=== PATIENT | female | born 1985 | race Caucasian/White ===

== ENCOUNTER 2017-01-11 10:02 | Inpatient (IN) | payer MEDICAID ==
[~2017-01-11] VITALS: Ht 154.9 cm; Wt 123.8 kg
[~2017-01-11 10:02] MED LIST: METF-303
[2017-01-11] MEDS ORDERED: LR 1,000 ML IV ONE (12:35)
[2017-01-11] MEDS ORDERED: CEFAZOLIN 2 GM IVPB PREMIX 50 ML IV ONE (12:45)
[2017-01-11 13:22] LABS: BASOPHILS # (AUTO) 0.1 K/uL (0.0-0.2); BASOPHILS % (AUTO) 0.6 % (0.0-2.0); EOSINOPHILS # (AUTO) 0.4 K/uL (0.0-0.4); EOSINOPHILS % (AUTO) 3.3 % (0.0-4.0); HEMOGLOBIN 11.4 g/dL (12.0-16.0); MEAN CORPUSCULAR HEMOGLOBIN 26 pg (27-31); MEAN CORPUSCULAR HGB CONC 33 % (32-36); MEAN CORPUSCULAR VOLUME 79 fL (79.0-98.0); MONOCYTES # (AUTO) 0.7 K/uL (0.0-1.0); NEUTROPHILS # (AUTO) 9.2 K/uL (1.8-7.7); NEUTROPHILS % (AUTO) 69.1 % (40.0-70.0); PLATELET COUNT (AUTO) 328 K/uL (130-430); RED BLOOD CELL COUNT(AUTO) 4.42 MIL/uL (4.2-6.2); RED CELL DISTRIBUTION WIDTH 14.1 % (9.0-15.0); WHITE BLOOD COUNT (AUTO) 13.4 K/uL (4.8-10.8)
[2017-01-11 13:26] LABS: BILIRUBIN,URINE 1+ (NEGATIVE); BLOOD, URINE NEGATIVE (NEGATIVE); CLARITY/URINE CLEAR (CLEAR); COLOR,URINE YELLOW (YELLOW); GLUCOSE,URINE NEGATIVE (NEGATIVE); KETONES,URINE 1+ (NEGATIVE); LEUKOCYTE ESTERASE ,URINE 1+ (NEGATIVE); NITRITE, URINE NEGATIVE (NEGATIVE); PROTEIN URINE TRACE (NEGATIVE)
[2017-01-11 13:39] LABS: BACTERIA,URINE FEW /HPF (None Seen); MUCUS,URINE None Seen /LPF (None Seen); RBC,URINE 0-3 /HPF (0-3)
[2017-01-11] MEDS ORDERED: ePHEDrine sulfate 50 MG/ML VIAL IV ONE (14:00)
[2017-01-11] MEDS ORDERED: NS 1000 ML BAG IV ONE (14:00)
[2017-01-11] MEDS ORDERED: LR 1,000 ML IV.SOLN IV ONE (14:00)
[2017-01-11] MEDS ORDERED: MORPHINE SULFATE 10MG/10ML PF AMP EP ONE (14:00)
[2017-01-11] MEDS ORDERED: ONDANSETRON HCL 4 MG/2 ML VIAL IVP ONE (14:00)
[2017-01-11] MEDS ORDERED: LR 1,000 ML IV SCH ×2 (14:40→15:18)
[2017-01-11] MEDS ORDERED: NALOXONE HCL 1 MG in NACL 0.9% 1,000 ML IV PRN ×4 (14:40)
[2017-01-11] MEDS ORDERED: HYDROmorphone 1 MG INJ. 1 MG/ML AMPUL IVP PRN (14:45)
[2017-01-11] MEDS ORDERED: HYDROmorphone 2 MG/ML VIAL IVP PRN ×2 (14:45)
[2017-01-11] MEDS ORDERED: NALOXONE HCL 0.4 MG/ML AMP (NARCAN) IVP PRN ×3 (14:45)
[2017-01-11] MEDS ORDERED: DIPHENHYDRAMINE HCL 50 MG CAPSULE PO PRN (14:45)
[2017-01-11] MEDS ORDERED: KETOROLAC TROMETHAMINE 60 MG/2 ML VIAL IM PRN (14:45)
[2017-01-11] MEDS ORDERED: ONDANSETRON HCL 4 MG/2 ML VIAL IVP PRN (14:45)
[2017-01-11] MEDS ORDERED: DIPHENHYDRAMINE INJ 50 MG/ML VIAL IVP PRN (14:45)
[2017-01-11] MEDS ORDERED: MEPERIDINE HCL/PF 25 MG/ML DISP.SYRIN IVP PRN ×2 (14:45)
[2017-01-11] MEDS ORDERED: OXYTOCIN/NORMAL SALINE 1,000 ML IV ONE ×2 (15:18→15:36)
[2017-01-11] MEDS ORDERED: OXYCODONE/ACETAMINOPHEN 5-325 TABLET PO PRN (15:30)
[2017-01-11] MEDS ORDERED: MORPHINE SULFATE 10 MG/ML VIAL IVP PRN (15:30)
[2017-01-11] MEDS ORDERED: DOCUSATE SODIUM 100 MG CAPSULE PO PRN (15:30)
[2017-01-11] MEDS ORDERED: SENNOSIDES/DOCUSATE SODIUM 1 TAB TABLET(SENOKOT-S) PO PRN (15:30)
[2017-01-11] MEDS ORDERED: SIMETHICONE 80 MG TAB.CHEW PO PRN (15:30)
[2017-01-11] MEDS ORDERED: LANOLIN 7 GM OINT. TP PRN (15:30)
[2017-01-11] MEDS ORDERED: ANUSOL 1 EA SUPP.RECT (PREPARATION H) RC PRN (15:30)
[2017-01-11] MEDS ORDERED: BISACODYL 10 MG/SUPPOSITORY RC PRN (15:30)
[2017-01-11] MEDS ORDERED: TEMAZEPAM 15 MG CAPSULE PO PRN (21:00)
[2017-01-12 03:52] VITALS: BP_SYST 117
[2017-01-12 06:30] LABS: BASOPHILS % (AUTO) 0.3 % (0.0-2.0); EOSINOPHILS # (AUTO) 0.1 K/uL (0.0-0.4); EOSINOPHILS % (AUTO) 0.6 % (0.0-4.0); HEMATOCRIT 29.9 % (36-48); HEMOGLOBIN 9.8 g/dL (12.0-16.0); LYMPHOCYTES # (AUTO) 2.6 K/uL (1.0-5.5); LYMPHOCYTES % (AUTO) 19.1 % (20.5-51.5); MEAN CORPUSCULAR HEMOGLOBIN 26 pg (27-31); MEAN CORPUSCULAR HGB CONC 33 % (32-36); MEAN CORPUSCULAR VOLUME 80 fL (79.0-98.0); MONOCYTES # (AUTO) 0.5 K/uL (0.0-1.0); MONOCYTES % (AUTO) 3.9 % (1.7-9.3); NEUTROPHILS # (AUTO) 10.6 K/uL (1.8-7.7); NEUTROPHILS % (AUTO) 76.1 % (40.0-70.0); PLATELET COUNT (AUTO) 291 K/uL (130-430); RED BLOOD CELL COUNT(AUTO) 3.73 MIL/uL (4.2-6.2); RED CELL DISTRIBUTION WIDTH 13.7 % (9.0-15.0); WHITE BLOOD COUNT (AUTO) 13.8 K/uL (4.8-10.8)
[2017-01-12] MEDS: OXYCODONE/ACETAMINOPHEN 5-325 TABLET PO PRN ×2 (16:18→21:08)
[2017-01-13] MEDS: OXYCODONE/ACETAMINOPHEN 5-325 TABLET PO PRN (08:08)
== END 2017-01-13 10:10 | disposition home or self-care (01) | DRG 540 ==
LOC: SPU 11:56
PROVIDERS: ADMIT Obstetrics & Gynecology; ATTEND Obstetrics & Gynecology
PROC: 10D00Z1 Extraction of Products of Conception, Low, Open Approach (ICD-10-PCS; principal; 2017-01-11 14:00)
DX: O34.211 Maternal care for low transverse scar from previous cesarean delivery (principal); O10.92 Unspecified pre-existing hypertension complicating childbirth; O99.214 Obesity complicating childbirth; E66.01 Morbid (severe) obesity due to excess calories; O24.429 Gestational diabetes mellitus in childbirth, unspecified control; Z67.91 Unspecified blood type, Rh negative; Z68.43 Body mass index [BMI] 50.0-59.9, adult; Z37.0 Single live birth; Z3A.38 38 weeks gestation of pregnancy; Z91.018 Allergy to other foods
CPT/HCPCS: 36415; 81000-TC; 82947-TC; 82962; 85025; 86592; 86870; 86886; 86900; 86901; 87086; 94760; J0690; J2274; J2310; J2405; J2590; J2790; J7030; J7120

== ENCOUNTER 2017-05-27 12:31 | Emergency (ER) | payer MEDICAID ==
[~2017-05-27] VITALS: Ht 154.9 cm; Wt 117.9 kg
[2017-05-27 12:31] VITALS: BP_SYST 160
--- NOTE | 2017-05-27 12:31 | NUR ---
Patient triaged and placed in waiting room. VSS and patient appears in no acute distress at this time. Accompanied by SELF, awaiting available bed, and MD notified of need for MSE.
--- NOTE | 2017-05-27 14:00 | NUR ---
Pt placed in room 6, side rails up.
--- NOTE | 2017-05-27 14:05 | NUR ---
Mi MANRIQUEZ at bedside examining pt.
--- NOTE | 2017-05-27 14:10 | NUR ---
Pt presents to ER c/o abd pain x 3 weeks pain level 10/10. Pt reports also having N/V and chills. Denies fever. Pt denies CHEST PAIN, SOB. Pt reports history of HTN, Polycystic ovarian syndrome and galblader removal. Pt reports taking hydrochlorothiazide at home daily. No acute distress noted. AOX4. Allergy to strawberries noted.
[2017-05-27 14:19] LABS: BILIRUBIN,URINE NEGATIVE (NEGATIVE); BLOOD, URINE NEGATIVE (NEGATIVE); CLARITY/URINE SL HAZY (CLEAR); COLOR,URINE YELLOW (YELLOW); GLUCOSE,URINE NEGATIVE (NEGATIVE); KETONES,URINE TRACE (NEGATIVE); LEUKOCYTE ESTERASE ,URINE NEGATIVE (NEGATIVE); NITRITE, URINE NEGATIVE (NEGATIVE); PH,URINE 6.5 (5.0-8.0); PROTEIN URINE NEGATIVE (NEGATIVE); UROBILINOGEN,URINE 0.2 (0.2-1.0)
[2017-05-27 14:26] LABS: CALCIUM 8.8 mg/dL (8.4-11.0); CREATININE 0.49 mg/dL (0.55-1.30); POTASSIUM 3.9 mmol/L (3.5-5.1)
[2017-05-27] MEDS ORDERED: ONDANSETRON HCL 4 MG/2 ML VIAL IVP ONE (14:30)
[2017-05-27] MEDS ORDERED: NACL 0.9% 1,000 ML IV ONE (14:30)
--- NOTE | 2017-05-27 14:30 | NUR ---
Patient transported to radiology for CT via ambulatory, accompanied by rad staff.
[2017-05-27 14:31] LABS: ALBUMIN 3.6 g/dL (3.4-4.8); TOTAL BILIRUBIN 0.2 mg/dL (0.0-1.0)
[2017-05-27 14:46] LABS: BASOPHILS % (AUTO) 0.4 % (0.0-2.0); EOSINOPHILS # (AUTO) 0.7 K/uL (0.0-0.4); EOSINOPHILS % (AUTO) 6.7 % (0.0-4.0); HEMATOCRIT 37.5 % (36-48); HEMOGLOBIN 12.3 g/dL (12.0-16.0); LYMPHOCYTES # (AUTO) 2.5 K/uL (1.0-5.5); LYMPHOCYTES % (AUTO) 22.6 % (20.5-51.5); MEAN CORPUSCULAR HEMOGLOBIN 26 pg (27-31); MEAN CORPUSCULAR HGB CONC 33 % (32-36); MEAN CORPUSCULAR VOLUME 80 fL (79.0-98.0); MONOCYTES # (AUTO) 0.6 K/uL (0.0-1.0); MONOCYTES % (AUTO) 5.8 % (1.7-9.3); NEUTROPHILS # (AUTO) 7.2 K/uL (1.8-7.7); NEUTROPHILS % (AUTO) 64.5 % (40.0-70.0); PLATELET COUNT (AUTO) 362 K/uL (130-430); RED BLOOD CELL COUNT(AUTO) 4.72 MIL/uL (4.2-6.2); RED CELL DISTRIBUTION WIDTH 13.6 % (9.0-15.0)
--- NOTE | 2017-05-27 15:08 | NUR ---
# 20 gauge angiocath placed to LAC. Use of asceptic technique. Opsite placed over site. Blood return noted. Flushed with 10 cc of normal saline. No evidence of infiltration noted. Patient tolerated well.
--- NOTE | 2017-05-27 15:10 | NUR ---
Pt medicated w/ Zofran for nausea. Pt tolerated well. Will continue to monitor.
--- NOTE | 2017-05-27 15:15 | NUR ---
Mi MANRIQUEZ at bedside updating pt on lab results and plan of action.
--- NOTE | 2017-05-27 15:27 | NUR ---
Pt given Cipro 500 mg PO. Pt tolerated well.
[2017-05-27] MEDS ORDERED: CIPROFLOXACIN HCL 500 MG TABLET PO ONE (15:30)
[2017-05-27 16:00] VITALS: BP_SYST 148
--- NOTE | 2017-05-27 16:01 | NUR ---
Patient given written and verbal discharge instructions and verbalizes understanding. ER MD discussed with patient the results and treatment provided. Patient in stable condition. ID arm band removed. IV catheter removed intact and dressing applied, no active bleeding. Rx of cipro, bentyl, & zofran given. Patient educated on pain management and to follow up with PMD. Pain Scale 2/10. Opportunity for questions provided and answered.
== END 2017-05-27 16:00 | disposition home or self-care (01) ==
LOC: SED 12:31
DX: F10.129 Alcohol abuse with intoxication, unspecified (principal); Z88.2 Allergy status to sulfonamides
CPT/HCPCS: 36415; 74176; 80053; 81003; 83690; 85025; 96361; 96374; 99285; J2405; J7030

== ENCOUNTER 2017-06-21 01:45 | Emergency (ER) | payer MEDICAID ==
[~2017-06-21] VITALS: Ht 154.9 cm; Wt 117.9 kg
[2017-06-21 02:05] VITALS: BP_SYST 157
--- NOTE | 2017-06-21 02:15 | NUR ---
Patient to ER bed 2 to gown for evaluation. Side rails up. Report given to INES DUTTON.
--- NOTE | 2017-06-21 02:20 | NUR ---
Pt alert and oriented. Pt c/o back pain, pain to lower left side that radiates up to left shoulder, nausea with no vomiting. Pain stated 10/10 pinching. No signs of SOB or acute distress noted. Safety precautions in place, will continue to monitor.
[2017-06-21] MEDS ORDERED: KETOROLAC TROMETHAMINE 60 MG/2 ML VIAL IM ONE (02:30)
[2017-06-21] MEDS ORDERED: ONDANSETRON 4 MG ODT TAB PO ONE (02:30)
--- NOTE | 2017-06-21 02:35 | NUR ---
ER MD ONEAL AT BEDSIDE EXAMINING PATIENT.
[2017-06-21] MEDS: CYCLOBENZAPRINE HCL 10 MG TABLET (FLEXERIL) PO ONE ×2 (03:07→03:10)
[2017-06-21 04:05] VITALS: BP_SYST 140
--- NOTE | 2017-06-21 04:05 | NUR ---
Patient given written and verbal discharge instructions and verbalizes understanding. ER MD ONEAL discussed with patient the results and treatment provided. Patient in stable condition. ID arm band removed. Rx of IBPROPHEN given. Patient educated on pain management and to follow up with PMD. Pain Scale 2/10. Opportunity for questions provided and answered.
== END 2017-06-21 04:05 | disposition home or self-care (01) ==
LOC: SED 01:45
DX: S39.012A Strain of muscle, fascia and tendon of lower back, initial encounter (principal); J45.909 Unspecified asthma, uncomplicated; Z91.018 Allergy to other foods; X58.XXXA Exposure to other specified factors, initial encounter; Y93.89 Activity, other specified; Y92.89 Other specified places as the place of occurrence of the external cause; Y99.8 Other external cause status
CPT/HCPCS: 96374; 99284; J1885; Q0162; 96361; 99285

== ENCOUNTER 2020-12-25 09:00 | Emergency (ER) | payer MEDICAID ==
[~2020-12-25] VITALS: Ht 154.9 cm; Wt 122.5 kg
[~2020-12-25 09:00] MED LIST changes: -METF-303; +METF-379
--- NOTE | 2020-12-25 09:00 | NUR ---
Placed in room 8 . Placed on hall monitor, blood pressure machine and pulse oximeter. To gown for exam. Side rails up. Report given to INES Cabral.
[2020-12-25 09:09] VITALS: BP_SYST 148
[2020-12-25] MEDS ORDERED: KETOROLAC TROMETHAMINE 60 MG/2 ML VIAL IM ONE (09:15)
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
--- NOTE | 2020-12-25 09:35 | NUR ---
medicated with Toradol for pain
[2020-12-25] MEDS ORDERED: MORPHINE 4 MG INJ. 4 MG/ML VIAL IM ONE (10:30)
--- NOTE | 2020-12-25 10:30 | NUR ---
ER at bedside examining patient.
[2020-12-25] MEDS ORDERED: MORPHINE 4 MG INJ. 4 MG/ML VIAL ONE (10:37)
[2020-12-25] MEDS ORDERED: HYDR-3917 PO (10:44)
--- NOTE | 2020-12-25 11:05 | NUR ---
Patient given written and verbal discharge instructions and verbalizes understanding. ER MD Saeed discussed with patient the results and treatment provided. Patient in stable condition. ID arm band removed. Rx of Gibbon given. Patient educated on pain management and to follow up with PMD. Pain Scale 3. Opportunity for questions provided and answered. Medication side effect fact sheet provided.
[2020-12-25 11:06] VITALS: BP_SYST 139
== END 2020-12-25 11:06 | disposition home or self-care (01) ==
LOC: SED 09:00
DX: M54.5 Low back pain (principal); J45.909 Unspecified asthma, uncomplicated; Z88.8 Allergy status to other drugs, medicaments and biological substances; Z91.018 Allergy to other foods
CPT/HCPCS: 81002; 81025; 96372; 99284; J1885; J2270

== ENCOUNTER 2021-02-02 12:33 | Emergency (ER) | payer MEDICAID ==
[~2021-02-02] VITALS: Ht 154.9 cm; Wt 119.7 kg
[2021-02-02 12:33] VITALS: BP_SYST 146
[~2021-02-02 12:33] MED LIST changes: +HYDR-3917 PO
[2021-02-02] MEDS ORDERED: MORPHINE 4 MG INJ. 4 MG/ML VIAL IM ONE (13:30)
[2021-02-02] MEDS ORDERED: KETOROLAC TROMETHAMINE 60 MG/2 ML VIAL IM ONE (13:30)
[2021-02-02 14:31] VITALS: BP_SYST 142
== END 2021-02-02 14:09 | disposition home or self-care (01) ==
LOC: SED 12:33
DX: M54.2 Cervicalgia (principal); J45.909 Unspecified asthma, uncomplicated; Z79.899 Other long term (current) drug therapy; Z91.018 Allergy to other foods
CPT/HCPCS: 96372; 99284; J1885; J2270

== ENCOUNTER 2021-06-23 06:55 | Emergency (ER) | payer MEDICAID, SELFPAY ==
[~2021-06-23] VITALS: Ht 154.9 cm; Wt 113.4 kg
[2021-06-23 07:15] VITALS: BP_SYST 146
--- NOTE | 2021-06-23 07:15 | NUR ---
Pt to bed 4 for evaluation.
--- NOTE | 2021-06-23 07:20 | NUR ---
Pt AAO and ambulatory reporting a sudden onset of abdominal pain that started last night at 1am. Pt reports that she has had 2 episodes of vomiting and rates pain 9/10 on pain scale. Pt has history of IBS, polycystic (PCOS), and diabetes.
--- NOTE | 2021-06-23 07:22 | NUR ---
Report given to INES Arvizu who will assume care.
--- NOTE | 2021-06-23 07:35 | NUR ---
Dr Broderick to bedside to assess patient
[2021-06-23] MEDS ORDERED: ONDANSETRON HCL 4 MG/2 ML VIAL IVP ONE (07:45)
[2021-06-23] MEDS ORDERED: MORPHINE 4 MG INJ. 4 MG/ML VIAL IVP ONE (07:45)
[2021-06-23] MEDS ORDERED: NACL 0.9% 1,000 ML IV ONE (08:15)
--- NOTE | 2021-06-23 08:15 | NUR ---
# 20 gauge angiocath placed to R AC. Use of asceptic technique. Opsite placed over site. Blood return noted. Blood for lab drawn from site. Flushed with 10 cc of normal saline. No evidence of infiltration noted. Patient tolerated well.
--- NOTE | 2021-06-23 08:35 | NUR ---
Pt transported to CT scan via wheelchair
[2021-06-23 08:38] LABS: BASOPHILS # (AUTO) 0.2 K/uL (0.0-0.2); BASOPHILS % (AUTO) 1.4 % (0.0-2.0); EOSINOPHILS % (AUTO) 0.2 % (0.0-4.0); HEMATOCRIT 44.6 % (36-48); HEMOGLOBIN 14.7 g/dL (12.0-16.0); LYMPHOCYTES # (AUTO) 3.1 K/uL (1.0-5.5); LYMPHOCYTES % (AUTO) 21.5 % (20.5-51.5); MEAN CORPUSCULAR HEMOGLOBIN 27 pg (27-31); MEAN CORPUSCULAR HGB CONC 33 % (32-36); MEAN CORPUSCULAR VOLUME 80 fL (79.0-98.0); MONOCYTES # (AUTO) 0.5 K/uL (0.0-1.0); MONOCYTES % (AUTO) 3.8 % (1.7-9.3); NEUTROPHILS # (AUTO) 10.6 K/uL (1.8-7.7); NEUTROPHILS % (AUTO) 73.1 % (40.0-70.0); PLATELET COUNT (AUTO) 369 K/uL (130-430); RED BLOOD CELL COUNT(AUTO) 5.55 MIL/uL (4.2-6.2); RED CELL DISTRIBUTION WIDTH 13.1 % (9.0-15.0); WHITE BLOOD COUNT (AUTO) 14.4 K/uL (4.8-10.8)
[2021-06-23] MEDS ORDERED: HYDR-3917 PO (08:48)
[2021-06-23 09:11] LABS: CALCIUM 8.9 mg/dL (8.4-11.0); CREATININE 0.64 mg/dL (0.55-1.30); POTASSIUM 3.5 mmol/L (3.5-5.1)
[2021-06-23 09:15] LABS: ALBUMIN 3.5 g/dL (3.4-4.8); TOTAL BILIRUBIN 0.4 mg/dL (0.0-1.0)
[2021-06-23] MEDS ORDERED: ONDA4TAB5 PO (09:24)
--- NOTE | 2021-06-23 10:05 | NUR ---
Patient given written and verbal discharge instructions and verbalizes understanding. ER MD discussed with patient the results and treatment provided. Patient in stable condition. ID arm band removed. IV catheter removed intact and dressing applied, no active bleeding. Rx of Zofran given. Patient educated on pain management and to follow up with PMD. Pain scale 0/10. Opportunity for questions provided and answered. Medication side effect fact sheet provided.
[2021-06-23 10:08] VITALS: BP_SYST 146
== END 2021-06-23 10:05 | disposition home or self-care (01) ==
LOC: SED 06:55
DX: I88.0 Nonspecific mesenteric lymphadenitis (principal); J45.909 Unspecified asthma, uncomplicated; Z91.018 Allergy to other foods
CPT/HCPCS: 36415; 74176; 76376; 80053; 81002; 81025; 83605; 83690; 85025; 96374; 96375; 99284; J2270; J2405

== ENCOUNTER 2022-04-05 08:13 | Emergency (ER) | payer MEDICAID ==
[~2022-04-05] VITALS: Ht 154.9 cm; Wt 112.0 kg
[~2022-04-05 08:13] MED LIST changes: +ONDA4TAB5 PO
[2022-04-05 08:35] VITALS: BP_SYST 146
--- NOTE | 2022-04-05 08:44 | NUR ---
Placed in room 8 . Placed on saw grinder, blood pressure machine and pulse oximeter. To gown for exam. Side rails up. Report given to ARISTEO REYEZ.
[2022-04-05] MEDS ORDERED: NACL 0.9% 1,000 ML IV ONE (09:00)
[2022-04-05] MEDS ORDERED: KETOROLAC TROMETHAMINE 30 MG VIAL IVP ONE (09:00)
--- NOTE | 2022-04-05 09:00 | NUR ---
ER at bedside examining patient.
[2022-04-05] MEDS ORDERED: LORazepam 2 MG/ML VIAL IVP ONE (09:15)
[2022-04-05] MEDS ORDERED: ONDANSETRON HCL 4 MG/2 ML VIAL IVP ONE (09:15)
[2022-04-05 09:25] LABS: BASOPHILS # (AUTO) 0.1 K/uL (0.0-0.2); BASOPHILS % (AUTO) 0.8 % (0.0-2.0); EOSINOPHILS # (AUTO) 0.2 K/uL (0.0-0.4); EOSINOPHILS % (AUTO) 1.8 % (0.0-4.0); HEMATOCRIT 43.7 % (36-48); HEMOGLOBIN 14.8 g/dL (12.0-16.0); LYMPHOCYTES # (AUTO) 2.7 K/uL (1.0-5.5); LYMPHOCYTES % (AUTO) 21.9 % (20.5-51.5); MEAN CORPUSCULAR HEMOGLOBIN 28 pg (27-31); MEAN CORPUSCULAR HGB CONC 34 % (32-36); MEAN CORPUSCULAR VOLUME 82 fL (79.0-98.0); MONOCYTES # (AUTO) 0.4 K/uL (0.0-1.0); MONOCYTES % (AUTO) 3.4 % (1.7-9.3); NEUTROPHILS # (AUTO) 9.1 K/uL (1.8-7.7); NEUTROPHILS % (AUTO) 72.1 % (40.0-70.0); PLATELET COUNT (AUTO) 352 K/uL (130-430); RED BLOOD CELL COUNT(AUTO) 5.32 MIL/uL (4.2-6.2); RED CELL DISTRIBUTION WIDTH 13.1 % (9.0-15.0); WHITE BLOOD COUNT (AUTO) 12.6 K/uL (4.8-10.8)
--- NOTE | 2022-04-05 09:30 | NUR ---
Pt BIB SELF to ER from home. CC- Abdominal pain R/T Irritated bowel nausea, bilateral extremeities weakness, Pt notes hisstory of IBS stomach pain and chestwall pain. Pt is aaox4, skin intact.
[2022-04-05 09:35] LABS: BILIRUBIN,URINE NEGATIVE (NEGATIVE); BLOOD, URINE NEGATIVE (NEGATIVE); CLARITY/URINE SL CLOUDY (CLEAR); COLOR,URINE YELLOW (YELLOW); GLUCOSE,URINE 3+ (NEGATIVE); KETONES,URINE 1+ (NEGATIVE); LEUKOCYTE ESTERASE ,URINE NEGATIVE (NEGATIVE); NITRITE, URINE NEGATIVE (NEGATIVE); PROTEIN URINE NEGATIVE (NEGATIVE); UROBILINOGEN,URINE 0.2 (0.2-1.0)
[2022-04-05 09:37] LABS: CALCIUM 9.1 mg/dL (8.4-11.0); CREATININE 0.95 mg/dL (0.55-1.30); POTASSIUM 3.2 mmol/L (3.5-5.1)
[2022-04-05 09:41] LABS: ALBUMIN 3.8 g/dL (3.4-4.8); PHOSPHORUS 3.7 mg/dL (2.7-4.5); TOTAL BILIRUBIN 0.6 mg/dL (0.0-1.0)
--- NOTE | 2022-04-05 10:23 | NUR ---
# 20 gauge angiocath placed to LAC. Use of asceptic technique. Opsite placed over site. Blood return noted. Blood for lab drawn from site. Flushed with 10 cc of normal saline. No evidence of infiltration noted. Patient tolerated well.
--- NOTE | 2022-04-05 10:28 | NUR ---
IVP meds given per MD order. Pt to Radiology dept.
[2022-04-05 10:29] LABS: BARBITURATE, URINE NEGATIVE (NEG <=200); BENZODIAZEPINE, URINE NEGATIVE (NEG <=150); CANNABINOID, URINE NEGATIVE (NEG <=50); COCAINE, URINE NEGATIVE (NEG <=150); METHAMPHETAMINES SCREEN,URINE NEGATIVE (NEG <=500); OPIATE, URINE POSITIVE (NEG <=100); PHENCYCLIDINE SCREEN,URINE NEGATIVE (NEG <=25); UR TRICYCLIC ANTIDEPRESSANTS NEGATIVE (NEG <=300); URINE AMPHETAMINE NEGATIVE (NEG <=500); URINE METHADONE NEGATIVE (NEG <=200); URINE OXYCODONE SCREEN NEGATIVE (NEG <=100); URINE PROPOXYPHENE SCREEN NEGATIVE (NEG <=300)
[2022-04-05] MEDS ORDERED: MORPHINE 4 MG INJ. 4 MG/ML VIAL IVP ONE (11:15)
[2022-04-05] MEDS ORDERED: DICYCLOMINE HCL 10 MG/5 ML SOLUTION PO ONE (11:15)
--- NOTE | 2022-04-05 11:45 | NUR ---
Pt states discomfort with IV site left AC. Unable to flush NS, discontinued IV.
--- NOTE | 2022-04-05 12:00 | NUR ---
# 20 gauge angiocath placed to Right hand. Use of asceptic technique. Opsite placed over site. Blood return noted. Blood for lab drawn from site. Flushed with 10 cc of normal saline. No evidence of infiltration noted. Patient tolerated well.
[2022-04-05] MEDS ORDERED: NAPR-688 PO (12:26)
[2022-04-05] MEDS ORDERED: POTA-178 PO (12:32)
--- NOTE | 2022-04-05 12:55 | NUR ---
Patient given written and verbal discharge instructions and verbalizes understanding. ER MD discussed with patient the results and treatment provided. Patient in stable condition. ID arm band removed. Rx of NAPROXEN AND KDUR given. Patient educated on pain management and to follow up with PMD. Opportunity for questions provided and answered. Medication side effect fact sheet provided.
[2022-04-05 13:03] VITALS: BP_SYST 148
--- NOTE | 2022-04-05 14:30 | NUR ---
Ethan jefferson in ED - 04/05/22 at 1614 by SDNURMARGIE DAVID García at bedside examining patient.
== END 2022-04-05 12:55 | disposition home or self-care (01) ==
LOC: SED 08:13
DX: K58.0 Irritable bowel syndrome with diarrhea (principal); R10.13 Epigastric pain; E87.6 Hypokalemia; I10 Essential (primary) hypertension; R25.2 Cramp and spasm; E11.65 Type 2 diabetes mellitus with hyperglycemia; R73.9 Hyperglycemia, unspecified; R11.0 Nausea; J44.9 Chronic obstructive pulmonary disease, unspecified; Z91.018 Allergy to other foods; Z79.899 Other long term (current) drug therapy
CPT/HCPCS: 99284; 74176; 96374; 96375; 96361; 80307; 80053; 82550; 83690; 83735; 84100; 85025; 87040; 36415; 76376; 81025; 83605; 81003; J1885; J2060; J2405; J2270; J7030

== ENCOUNTER 2022-11-17 06:08 | Emergency (ER) | payer MEDICAID ==
[~2022-11-17] VITALS: Ht 154.9 cm; Wt 108.9 kg
[~2022-11-17 06:08] MED LIST changes: +NAPR-688 PO; +POTA-178 PO
[2022-11-17 06:21] VITALS: BP_SYST 140
--- NOTE | 2022-11-17 06:21 | NUR ---
Placed in room 7 . Placed on clinical research monitor, blood pressure machine and pulse oximeter. To gown for exam. Side rails up. Report given to Brett CHACON.
--- NOTE | 2022-11-17 06:25 | NUR ---
PT BIB SELF FROM HOME, AMBULATED TO BED 7. PT A&Ox4, ABLE TO MAKE NEEDS KNOWN. PT C/O RIGHT ANKLE PAIN. PT STATES SHE ROLLED HER ANKLE AT THE BASEBALL GAME LAST NIGHT. PT DENIES FALLING. PT STATES SHE WENT TO SLEEP AND WOKE UP WITH RIGHT ANKLE SWOLLEN. PT RATES PAIN 12/24. PT STATES SHE TOOK NORCO 10MG AT 0515 FOR THE PAIN. PT DENIES N/V/D, SOB AND CHEST PAIN. PT DENIES FEVER AND CHILLS. PT STATES SHE IS ABLE TO BEAR A LITTLE BIT OF WEIGHT. SAFETY PRECAUTIONS IN PLACE.
[2022-11-17] MEDS ORDERED: NAPR-1172 PO (07:10)
--- NOTE | 2022-11-17 07:14 | NUR ---
PT AWAKE, A/O X4 AND VERBALLY RESPONSIVE. NO ACUTE DISTRESS. BREATHING EVEN AND UNLABORED. DISCHARGE INSTRUCTIONS REVIEWED WITH DR. COOPER. PT VERBALIZED UNDERSTANDING AND DENIED ANY QUESTIONS. PT AMBULATED FROM ED WITH STEADY GAIT.
== END 2022-11-17 07:14 | disposition home or self-care (01) ==
LOC: SED 06:08
DX: S93.401A Sprain of unspecified ligament of right ankle, initial encounter (principal); E11.9 Type 2 diabetes mellitus without complications; I10 Essential (primary) hypertension; J45.909 Unspecified asthma, uncomplicated; Z91.018 Allergy to other foods; Z79.899 Other long term (current) drug therapy; X58.XXXA Exposure to other specified factors, initial encounter; Y93.89 Activity, other specified; Y92.89 Other specified places as the place of occurrence of the external cause; Y99.8 Other external cause status
CPT/HCPCS: 99283

== ENCOUNTER 2023-07-15 19:06 | Emergency (ER) | payer MEDICAID ==
[~2023-07-15] VITALS: Ht 165.1 cm; Wt 136.1 kg
[~2023-07-15 19:06] MED LIST changes: +NAPR-1172 PO
[2023-07-15 19:25] VITALS: BP_SYST 128; PULSE 90; RESP 17; TEMP 98; O2SAT 97
[2023-07-15] MEDS ORDERED: HALOPERIDOL LACTATE 5 MG/ML VIAL IM ONE (19:45)
[2023-07-15 20:21] LABS: BASOPHILS % (AUTO) 0.2 % (0.0-2.0); EOSINOPHILS # (AUTO) 0.2 K/uL (0.0-0.4); HEMATOCRIT 44.3 % (36-48); HEMOGLOBIN 14.4 g/dL (12.0-16.0); LYMPHOCYTES # (AUTO) 2.6 K/uL (1.0-5.5); LYMPHOCYTES % (AUTO) 14.6 % (20.5-51.5); MEAN CORPUSCULAR HEMOGLOBIN 28 pg (27-31); MEAN CORPUSCULAR HGB CONC 33 % (32-36); MEAN CORPUSCULAR VOLUME 85 fL (79.0-98.0); MONOCYTES # (AUTO) 1.2 K/uL (0.0-1.0); MONOCYTES % (AUTO) 6.9 % (1.7-9.3); NEUTROPHILS # (AUTO) 13.7 K/uL (1.8-7.7); NEUTROPHILS % (AUTO) 77.3 % (40.0-70.0); PLATELET COUNT (AUTO) 313 K/uL (130-430); RED BLOOD CELL COUNT(AUTO) 5.21 MIL/uL (4.2-6.2); RED CELL DISTRIBUTION WIDTH 13.8 % (9.0-15.0); WHITE BLOOD COUNT (AUTO) 17.8 K/uL (4.8-10.8)
[2023-07-15 20:25] LABS: ANION GAP 11 (5-15); CALCIUM 9.6 mg/dL (8.4-11.0); CARBON DIOXIDE 26 mmol/L (23-29); CHLORIDE 106 mmol/L (98-107); CREATININE 0.73 mg/dL (0.55-1.30); GFR AFRICAN AMERICAN 115 mL/min (>90); GLUCOSE 119 mg/dL (74-106); POTASSIUM 3.9 mmol/L (3.5-5.1); SERUM HCG (QUALITATIVE) NEGATIVE (NEGATIVE); SODIUM SERUM 143 mmol/L (136-145); UREA NITROGEN, BLOOD 23 mg/dL (8-21)
[2023-07-15 20:27] LABS: GFR NON AFRICAN-AMERICAN 95 mL/min (>90); INR 1.1 (0.8-1.2); PROTHROMBIN TIME 10.9 SECS (9.5-12.5)
[2023-07-15 20:58] LABS: ALANINE AMINOTRANSFERASE 20 U/L (12-78); ALBUMIN 3.6 g/dL (3.4-4.8); AMYLASE 71 U/L (0-100); ASPARTATE AMINOTRANSFERASE 12 U/L (10-37); BILIRUBIN,DIRECT 0.2 mg/dL (0.0-0.3); LIPASE 32 U/L (16-77); TOTAL BILIRUBIN 0.5 mg/dL (0.0-1.0); TOTAL PROTEIN, SERUM 7.5 g/dL (6.4-8.3)
[2023-07-15 21:08] LABS: BILIRUBIN,URINE NEGATIVE (NEGATIVE); BLOOD, URINE NEGATIVE (NEGATIVE); COLOR,URINE YELLOW (YELLOW); GLUCOSE,URINE 3+ (NEGATIVE); KETONES,URINE 3+ (NEGATIVE); LEUKOCYTE ESTERASE ,URINE NEGATIVE (NEGATIVE); NITRITE, URINE NEGATIVE (NEGATIVE); PROTEIN URINE TRACE (NEGATIVE); UROBILINOGEN,URINE 0.2 (0.2-1.0)
[2023-07-15 21:48] LABS: CLARITY/URINE HAZY (CLEAR)
[2023-07-15 21:51] LABS: ACETONE, SERUM NEGATIVE (NEGATIVE)
[2023-07-15 21:56] LABS: BARBITURATE, URINE NEGATIVE (NEG <=200); BENZODIAZEPINE, URINE NEGATIVE (NEG <=150); CANNABINOID, URINE NEGATIVE (NEG <=50); COCAINE, URINE NEGATIVE (NEG <=150); METHAMPHETAMINES SCREEN,URINE NEGATIVE (NEG <=500); OPIATE, URINE POSITIVE (NEG <=100); PHENCYCLIDINE SCREEN,URINE NEGATIVE (NEG <=25); UR TRICYCLIC ANTIDEPRESSANTS NEGATIVE (NEG <=300); URINE AMPHETAMINE NEGATIVE (NEG <=500); URINE METHADONE NEGATIVE (NEG <=200); URINE OXYCODONE SCREEN NEGATIVE (NEG <=100)
[2023-07-15] MEDS ORDERED: MORPHINE 4 MG INJ. 4 MG/ML VIAL IM ONE (22:00)
[2023-07-15 22:32] LABS: BACTERIA,URINE FEW /HPF (None Seen); MUCUS,URINE 2+ /LPF (None Seen); RBC,URINE 0-3 /HPF (0-3)
[2023-07-15 22:33] LABS: CALCIUM OXALATE CRYSTALS,UR 0-10 /HPF (None Seen)
[2023-07-15] MEDS ORDERED: DICY10SO PO (23:22)
[2023-07-15 23:30] VITALS: BP_SYST 140; PULSE 75; RESP 16; TEMP 97.3; O2SAT 95
== END 2023-07-15 23:30 | disposition home or self-care (01) ==
LOC: SED 19:06
DX: K52.9 Noninfective gastroenteritis and colitis, unspecified (principal); R11.2 Nausea with vomiting, unspecified; J45.909 Unspecified asthma, uncomplicated; E11.9 Type 2 diabetes mellitus without complications; I10 Essential (primary) hypertension; Z91.018 Allergy to other foods; Z79.899 Other long term (current) drug therapy
CPT/HCPCS: 99285; 74176; 80307; 80076; 80048; 82009; 82150; 84703; 83690; 85025; 85610; 85730; 36415; 76376; 81025; 96372; 83605; 82397; 81000; 81001; 81015; J1630; J2270

== ENCOUNTER 2024-03-18 09:28 | Emergency (ER) | payer MEDICAID ==
[~2024-03-18] VITALS: Ht 154.9 cm; Wt 99.8 kg
[~2024-03-18 09:28] MED LIST changes: +CIPR500T5 PO; +DICY10SO PO; +EMPA25TA PO; -HYDR-3917 PO; +HYDR25TA4 PO; +LISI10TA29 PO; +LORA10TA64 PO; -METF-379; +METH-634 PO; +MILK1TAB PO; +MULT-1117 PO; -NAPR-1172 PO; -NAPR-688 PO; -POTA-178 PO; +TIRZ10PE; +[UNRECOGNIZED DRUG - CODE]
[2024-03-18 09:34] VITALS: BP_SYST 136; PULSE 95; RESP 24; TEMP 97.1; O2SAT 98
[2024-03-18] MEDS: HALOPERIDOL LACTATE 5 MG/ML VIAL IM ONE (10:04)
[2024-03-18 10:35] LABS: BASOPHILS # (AUTO) 0.1 K/uL (0.0-0.2); BASOPHILS % (AUTO) 0.8 % (0.0-2.0); EOSINOPHILS # (AUTO) 0.3 K/uL (0.0-0.4); EOSINOPHILS % (AUTO) 2.8 % (0.0-4.0); HEMATOCRIT 42.4 % (36-48); HEMOGLOBIN 13.7 g/dL (12.0-16.0); LYMPHOCYTES % (AUTO) 26.4 % (20.5-51.5); MEAN CORPUSCULAR HEMOGLOBIN 28 pg (27-31); MEAN CORPUSCULAR HGB CONC 32 % (32-36); MEAN CORPUSCULAR VOLUME 85 fL (79.0-98.0); MONOCYTES # (AUTO) 0.6 K/uL (0.0-1.0); MONOCYTES % (AUTO) 5.6 % (1.7-9.3); NEUTROPHILS # (AUTO) 7.2 K/uL (1.8-7.7); NEUTROPHILS % (AUTO) 64.4 % (40.0-70.0); PLATELET COUNT (AUTO) 358 K/uL (130-430); RED BLOOD CELL COUNT(AUTO) 4.99 MIL/uL (4.2-6.2); RED CELL DISTRIBUTION WIDTH 12.9 % (9.0-15.0)
[2024-03-18 10:47] LABS: WHITE BLOOD COUNT (AUTO) 11.2 K/uL (4.8-10.8)
[2024-03-18 10:48] LABS: PROTHROMBIN TIME 10.4 SECS (9.5-12.5)
[2024-03-18 10:55] LABS: SERUM HCG (QUALITATIVE) POSITIVE (NEGATIVE)
[2024-03-18 10:58] LABS: ALBUMIN 3.6 g/dL (3.4-4.8); AMYLASE 60 U/L (0-100); ANION GAP 7 (5-15); BILIRUBIN,DIRECT 0.2 mg/dL (0.0-0.3); CALCIUM 8.6 mg/dL (8.4-11.0); CARBON DIOXIDE 31 mmol/L (23-29); CHLORIDE 104 mmol/L (98-107); CREATININE 0.69 mg/dL (0.55-1.30); GFR AFRICAN AMERICAN 122 mL/min (>90); GFR NON AFRICAN-AMERICAN 101 mL/min (>90); GLUCOSE 134 mg/dL (74-106); LIPASE 32 U/L (16-77); POTASSIUM 3.3 mmol/L (3.5-5.1); SODIUM SERUM 142 mmol/L (136-145); TOTAL BILIRUBIN 0.6 mg/dL (0.0-1.0); TOTAL PROTEIN, SERUM 7.4 g/dL (6.4-8.3); UREA NITROGEN, BLOOD 14 mg/dL (8-21)
[2024-03-18 11:08] LABS: ALANINE AMINOTRANSFERASE 24 U/L (12-78)
[2024-03-18 11:09] LABS: ASPARTATE AMINOTRANSFERASE 20 U/L (10-37)
[2024-03-18 11:48] LABS: BILIRUBIN,URINE NEGATIVE (NEGATIVE); BLOOD, URINE 1+ (NEGATIVE); CLARITY/URINE SL CLOUDY (CLEAR); COLOR,URINE YELLOW (YELLOW); GLUCOSE,URINE 2+ (NEGATIVE); KETONES,URINE NEGATIVE (NEGATIVE); LEUKOCYTE ESTERASE ,URINE NEGATIVE (NEGATIVE); NITRITE, URINE NEGATIVE (NEGATIVE); PROTEIN URINE NEGATIVE (NEGATIVE)
[2024-03-18 12:14] LABS: BARBITURATE, URINE NEGATIVE (NEG <=200); BENZODIAZEPINE, URINE NEGATIVE (NEG <=150); CANNABINOID, URINE NEGATIVE (NEG <=50); COCAINE, URINE NEGATIVE (NEG <=150); METHAMPHETAMINES SCREEN,URINE NEGATIVE (NEG <=500); OPIATE, URINE NEGATIVE (NEG <=100); PHENCYCLIDINE SCREEN,URINE NEGATIVE (NEG <=25); URINE AMPHETAMINE NEGATIVE (NEG <=500); URINE METHADONE NEGATIVE (NEG <=200); URINE OXYCODONE SCREEN POSITIVE (NEG <=100)
[2024-03-18 12:15] LABS: UR TRICYCLIC ANTIDEPRESSANTS NEGATIVE (NEG <=300)
[2024-03-18 12:30] LABS: BACTERIA,URINE FEW /HPF (None Seen); WBC,URINE 0-3 /HPF (0-3)
[2024-03-18 12:48] VITALS: BP_SYST 128; PULSE 92; RESP 24; TEMP 97.1; O2SAT 98
[2024-03-18 13:17] LABS: ACETONE, SERUM NEGATIVE (NEGATIVE)
== END 2024-03-18 12:51 | disposition home or self-care (01) ==
LOC: SED 09:28
DX: R11.2 Nausea with vomiting, unspecified (principal); R10.10 Upper abdominal pain, unspecified; J45.909 Unspecified asthma, uncomplicated; E11.9 Type 2 diabetes mellitus without complications; I10 Essential (primary) hypertension; Z91.018 Allergy to other foods
CPT/HCPCS: 99285; 80307; 80076; 80048; 82009; 82150; 84703; 84702; 83690; 85025; 85610; 85730; 36415; 74018; 81025; 96372; 83605; 82397; 81001; 81000; 81015; J1630

== ENCOUNTER → 2024-03-27 | Emergency (ER) | payer MEDICAID ==
[~2024-03-27] VITALS: Ht 154.9 cm; Wt 99.8 kg
[2024-03-27 12:20] VITALS: BP_SYST 123; PULSE 75; RESP 19; TEMP 98.2; O2SAT 98
[2024-03-27 13:10] LABS: BASOPHILS # (AUTO) 0.1 K/uL (0.0-0.2); BASOPHILS % (AUTO) 0.9 % (0.0-2.0); EOSINOPHILS # (AUTO) 0.3 K/uL (0.0-0.4); HEMATOCRIT 40.6 % (36-48); HEMOGLOBIN 13.3 g/dL (12.0-16.0); LYMPHOCYTES % (AUTO) 37.9 % (20.5-51.5); MEAN CORPUSCULAR HEMOGLOBIN 28 pg (27-31); MEAN CORPUSCULAR HGB CONC 33 % (32-36); MEAN CORPUSCULAR VOLUME 85 fL (79.0-98.0); MONOCYTES # (AUTO) 0.4 K/uL (0.0-1.0); MONOCYTES % (AUTO) 4.1 % (1.7-9.3); NEUTROPHILS # (AUTO) 5.7 K/uL (1.8-7.7); NEUTROPHILS % (AUTO) 54.1 % (40.0-70.0); PLATELET COUNT (AUTO) 283 K/uL (130-430); RED CELL DISTRIBUTION WIDTH 12.9 % (9.0-15.0); WHITE BLOOD COUNT (AUTO) 10.5 K/uL (4.8-10.8)
[2024-03-27 13:48] LABS: ALBUMIN 3.5 g/dL (3.4-4.8); BILIRUBIN,DIRECT 0.1 mg/dL (0.0-0.3); CALCIUM 8.4 mg/dL (8.4-11.0); CREATININE 0.65 mg/dL (0.55-1.30); POTASSIUM 3.6 mmol/L (3.5-5.1); TOTAL BILIRUBIN 0.4 mg/dL (0.0-1.0); TOTAL PROTEIN, SERUM 6.6 g/dL (6.4-8.3)
[2024-03-27 14:13] LABS: PROTHROMBIN TIME 10.8 SECS (9.5-12.5)
== END | disposition home or self-care (01) ==
LOC: SED 12:05
DX: O26.891 Other specified pregnancy related conditions, first trimester (principal); R10.9 Unspecified abdominal pain; J45.909 Unspecified asthma, uncomplicated; E11.9 Type 2 diabetes mellitus without complications; I10 Essential (primary) hypertension; Z3A.01 Less than 8 weeks gestation of pregnancy; Z91.018 Allergy to other foods; Z79.899 Other long term (current) drug therapy; Z79.2 Long term (current) use of antibiotics
CPT/HCPCS: 36415; 80048; 80076; 84702; 85025; 85610; 85730; 86900; 86901; 99283